=== PATIENT | male | born 1960 | race Caucasian/White ===

== ENCOUNTER 2016-11-09 09:49 | Emergency (ER) | payer BC ==
[~2016-11-09] VITALS: Ht 182.9 cm; Wt 100.2 kg
[2016-11-09] MEDS ORDERED: METFORMIN HCL500 MG PO (10:52)
[2016-11-09] MEDS ORDERED: BUSPIRONE HCL15 MG PO (10:52)
[2016-11-09] MEDS ORDERED: WELLBUTRIN SR200 MG PO (10:53)
[2016-11-09] MEDS ORDERED: OMEPRAZOLE20 MG PO (10:53)
[2016-11-09] MEDS ORDERED: DICYCLOMINE HCL10 MG PO (10:53)
[2016-11-09] MEDS ORDERED: SIMVASTATIN80 MG PO (10:54)
[2016-11-09] MEDS ORDERED: B-COMPLEX-VITA1 EACH PO (10:54)
[2016-11-09] MEDS ORDERED: CALCIUM 600 MG1 EACH PO (10:55)
[2016-11-09] MEDS ORDERED: VITAMIN C500 M1 PO (10:55)
[2016-11-09] MEDS ORDERED: LISINOPRIL5 MG PO (10:56)
[2016-11-09] MEDS ORDERED: MEN'S ONE DAIL1 EACH PO (10:56)
[2016-11-09] MEDS ORDERED: MOTRIN800 MG PO (12:42)
[2016-11-09 12:58] VITALS: BP 111/82
== END 2016-11-09 13:07 | disposition home or self-care (01) ==
LOC: EME 09:49
DX: S89.91XA Unspecified injury of right lower leg, initial encounter (principal); X58.XXXA Exposure to other specified factors, initial encounter; R41.3 Other amnesia; E11.9 Type 2 diabetes mellitus without complications; I10 Essential (primary) hypertension; E78.5 Hyperlipidemia, unspecified
CPT/HCPCS: 93971; 99281; 99284